=== PATIENT | male | born 1945 | race Caucasian/White ===

== ENCOUNTER 2021-01-15 05:50 | Day surgery (SDC) | payer MEDICARE, OTHER ==
--- NOTE | 2021-01-02 13:41 | NUR ---
DOS: 15- STEPS: PT HAS 21 TOTAL. HE HAS STEPS INTO THE HOUSE AND INTO THE YARD FROM THE DRIVEWAY. HAS SIDERAILS ON BOTH SIDE OF ALL STAIRS. SHOWER: IS A STEP OVER, BUT HAS HAND RAILS AND A SHOWER CHAIR. WALKER: PT HAS FWW TOLITE: HE DOES NOT HAVE A TOLIET RAISER, BUT CAN GET ONE IF NEEDED. WILL DRIVE PT TO PHYSICAL THERAPY AND DR DIAZ
[~2021-01-15] VITALS: Ht 177.8 cm; Wt 98.6 kg
[~2021-01-15 05:50] MED LIST: AVODART0.5 MG PO; CLARITIN10 MG PO; DOXAZOSIN MESYLA4 MG PO; FLOMAX0.4 MG PO; LIPITOR20 MG PO; MOBIC15 MG PO; MULTI VITAMIN1 EACH PO; OMEPRAZOLE20 MG PO; VITAMIN B-121000 MCG PO; VITAMIN D325 MC2 PO
--- NOTE | 2021-01-15 09:25 | NUR ---
01/15/21 0925 Celena Padilla 0914 PT TO PACU ALERT AND AWAKE DENIES PAIN OR NAUSEA
--- NOTE | 2021-01-15 10:46 | NUR ---
LE 1030: PT ARRIVES TO UNIT VIA STRETCHER FROM PACU. REPORT RECEIVED AND CARE ASSUMED BY THIS AUTHOR. VSS. DRESSING C/D/I. STRONG PEDAL PULSES, CAP REFILL <3 SECONDS. PT WITH MINIMAL PAIN AT THIS TIME. LUIS ALBERTO PO INTAKE. CRYO CUFF AND SCDS IN PLACE. COMFORTABLE WITHOUT NEEDS AT THIS TIME. ATTENTIVE AT THE BEDSIDE. CALL LIGHT WITHIN REACH
--- NOTE | 2021-01-15 11:20 | NUR ---
PT ARRIVED TO FLOOR VIA BED. PT IS ALERT AND ORIENTED. BEDSIDE REPORT RECIEVED. PT REPORTING RIGHT KNEE PAIN AT 3/10. SBA TO SIDE OF BED FOR VOID. PT VOIDED 300ML THEN BACK TO BED. ASSESSMENT COMPLETED. CRYOCUFF, TEDHOSE, FEET PUMPS ALL IN PLACE. CALL LIGHT IN REACH. LUNCH ORDERED.
--- NOTE | 2021-01-15 11:26 | NUR ---
PT TRANSFERED TO ROOM 122 FOR EXTENDED STAY VIA STRETCHER. BEDSIDE REPORT GIVEN TO ACCEPTING RN AND CARE ASSUMED
--- NOTE | 2021-01-15 12:37 | NUR ---
VITALS COMPLETED AND STABLE. FOCUSED ASSESSMENT TO R KNEE COMPLETED. NO CHANGES. PT EATING AND TOLERATING LUNCH WITH NO ISSUES. CALL LIGHT IN REACH. DAWIT, SCD'S, TEDHOSE IN PLACE.
--- NOTE | 2021-01-15 14:58 | NUR ---
SATURATIONS DROPPING TO 87% WHEN PT FALLS ASLEEP AND SPD ALARM ALARMING. 2L NC PLACED. PT REPORTING URGE TO VOID BUT UNABILITY TO EMPTY BLADDER. SCAN COMPLETED WITH 1000 ML IN BLADDER. TORRES PLACED WITH LIDOCAINE USED. PT TOLERATED WELL AND 1100 ML WAS DRAINED FROM BLADDER. MEDICATIONS GIVEN AND LAST POST OP VITALS COMPLETED. PT REPORTING PAIN 01/10. SCD'S, TEDHOSE, CRYOCUFF IN PLACE. PT DENIES NEEDS. CALL LIGHT IN REACH.
[2021-01-15] MEDS ORDERED: DUTASTERIDE0.5 MG PO (16:37)
[2021-01-15] MEDS ORDERED: STOOL SOFTENER100 MG PO (17:11)
--- NOTE | 2021-01-15 17:12 | NUR ---
MED REC COMPLETE
--- NOTE | 2021-01-15 17:58 | NUR ---
DINNER TO BEDSIDE. ASSISTED UP TO CHAIR TO EAT. PAIN REPORTED AT 12/10. SCHEDULED PAIN MEDICATION. CRYOCUFF REFRESHED AND IN PLACE. PT SITTING WITH FEET DOWN PER REQUEST FOR DINNER.
--- NOTE | 2021-01-15 18:01 | NUR ---
FOUND PT IN BED WITH PILLS ON CHEST. ASKED PT WHAT THEY WERE AND PT REPORTS THEY ARE STOOL SOFTENERS. PT REPORTS HE ALREADY TOOK SOME. PT EDUCATED ON NOT TAKING MEDICATIONS THAT HAVENT BEEN APPROVED BY DR AND SEEN BY PHARMACY. PT IS AGREEABLE AND STATES HE WILL NOT BE TAKING ANY MORE PILLS. PT DOES NOT HAVE PILL BOTTLE, JUST HAS THEM IN BAG.
--- NOTE | 2021-01-15 18:35 | NUR ---
PT HAD GOOD DAY. PAIN WAS WELL CONTROLLED WITH ALL SCEHDULED MEDICATIONS. NO PRN'S ADMISNTERED. DRESSING CLEAN, DRY AND INTACT. PT PLACED ON 2L NC D/T PT BEING DROWSY AND DESATTING WHILE SLEEPING. TORRES PLACED FOR RETENTION. 1100 MLS OUT. PT UP TO CHAIR FOR DINNER. WORKED WELL WITH PHYSICAL THERAPY. TEDHOSE, CRYOCUFF ON. NO NAUSEA. EATING WELL, DRINKING WELL.
--- NOTE | 2021-01-15 20:02 | NUR ---
REPORT RECEIVED FROM DAYSHIFT RN, PT AWAKE AND ALERT SITTING AT BEDSIDE CHAIR, PT REPORTS NO FURTHER NEEDS AT THIS TIME. WILL CONTINUE PLAN OF CARE.
--- NOTE | 2021-01-15 20:50 | NUR ---
THIS RN IN TO ASSESS PT AND ADMINISTER ORDERED MEDICATIONS. PT LAYING IN BED AWAKE AND ALERT, TORRES IN PLACE AND DRAINING. PT COMPLAINS OF 1/10 PAIN IN HIS R KNEE. DRESSING ASSESSED AND IS C/D/I, SPICA DRESSING IN PLACE, CRYO CUFF ON. STRONG PULSES PRESENT IN LOWER EXTREMITIES. SCHEDULED MEDICATIONS ADMINISTED, ASSESSMENT COMPLETE. PT REPORTS NO FURTHER NEEDS AT THIS TIME, WILL CONTINUE PLAN OF CARE. CALL LIGHT IN REACH, BED IN LOWEST POSITION.
--- NOTE | 2021-01-15 21:00 | NUR ---
PATIENT CALLED DESKIDDING MACHINE OPERATOR SYSTEM TO GO FROM BED TO CHAIR. JARON FAJARDO AND THIS TRACER BULLET SECTION SUPERVISOR ASSITED PATIENT USING FWW. PATIENT EXPRESSED LITTLE PAIN AND DID WELL MOVING/ AMBULATING. CRYO READJUSTED. VIATLS AND I&O COMPLETED WITH ASSISTANCE FORM JARON DOW. BRIAN EMPTIED. JARON DOW AND AARON IN ROOM WHEN THIS TRACER BULLET SECTION SUPERVISOR LEFT ROOM.
--- NOTE | 2021-01-15 22:59 | NUR ---
THIS RN IN TO ADMINISTER SCHEDULED MEDICATIONS. IV ABX INFUSING AND ORDERED PAIN MEDICATIONS ADMINISTERED. PT STILL ONLY REPORTS 1/10 PAIN. PT STILL ON 2L O2 NC, SPO2 AT 96%. PT REPORTS NO SOB AT THIS TIME. PT REPORTS NO FURTHER NEEDS AT THIS TIME. IV ABX COMPLETE, LINE FLUSHED, PT SALINE LOCKED. BED IN LOWEST POSITION, CALL LIGHT IN REACH, WILL CONTINUE PLAN OF CARE.
--- NOTE | 2021-01-16 00:56 | NUR ---
THIS RN IN TO CHECK ON PT. PT LAYING IN BED SLEEPING. RESPIRATIONS NOTED AND ARE EVEN AND UNLABORED. PT IN NO APPARENT DISTRESS AT THIS TIME AND WAS LEFT UNDISTURBED, WILL CONTINUE PLAN OF CARE.
--- NOTE | 2021-01-16 02:41 | NUR ---
THIS RN IN TO ASSESS PT AND ADMINISTER ORDERED MEDICATIONS. PT INITIALLY SLEEPING IN BED AND IN NO APPARENT DISTRESS. PO AND IV PAIN MEDICATION GIVEN (SEE MAR). PT STATED THAT HE ONLY HAD A PAIN OF 2/10 ON HIS R KNEE WHEN HE MOVED IT. PT ASSESSED, VS STABLE, PT ON 2L O2 NC, SPO2 AT 95%. DRESSING ON R KNEE IS C/D/I AND SHOWS NO SIGNS OF BLEEDING, SPICA DRESSING IN PLACE. PT REPORTS NO SOB WHEN ASKED. CRYOCUFF REFILLED WITH ICE AT THIS TIME. PT REPORTS NO FURTHER NEEDS AT THIS TIME, WILL CONTINUE PLAN OF CARE. CALL LIGHT IN REACH, BED IN LOWEST POSITION.
--- NOTE | 2021-01-16 06:26 | NUR ---
IN PATIENT ROOM FOR VIATLS AND I&O. BOTH COMPLETED. 100ML OUT OF TORRES. JARON DOW NOTIFIED OF LOW URINE OUTPUT. CRYO CHECKED FOR ICE. PATIENT REQUESTED APPLE SAUCE. FFRESH WATER AND APPLESAUCE GIVEN. CALL LIGHT IN REACH. PATIENT DENIES ANY FUTHER NEEDS.
--- NOTE | 2021-01-16 06:55 | NUR ---
THIS RN IN TO ADMINISTER ORDERED MEDICATIONS AND DC TORRES. PT LAYING IN BED AWAKE AND ALERT. PT REPORTS 2/10 PAIN IN THE R KNEE WHEN HE MOVES IT. HELENA WRAP, ABD AND DRESSING STILL IN PLACE WITH NO NEW SIGNS OF BLEEDING. CRYO CUFF IN PLACE. PEDAL PULSES STRONG. ON-Q PUMP IN PLACE AT 6ML/HR. IV ABX AND SCHEDULED PAIN MEDICATION ADMINISTERED AND IV ABX COMPLETED, PT SALINE LOCKED. PT TORRES DC'D DURING THIS TIME, DC WNL AND PT TOLERATED REMOVAL WELL. PT PROVIDED WITH WATER PER HIS REQUEST. PT TAKEN OFF OF 2L O2 NC, AND IS NOW ON ROOM AIR, SPO2 RANGING FROM 90-92%. PT REPORTS NO SOB. PT REPORTS NO FURTHER NEEDS AT THIS TIME, CALL LIGHT IN REACH, BED IN LOWEST POSITION, WILL CONTINUE PLAN OF CARE.
--- NOTE | 2021-01-16 07:29 | NUR ---
REPORT RECEIVED. PT AWAKE IN BED, NOW ON RA WITH PSO2 AT 95%. ACTICOAT, ABD, AND HELENA WRAP IN PLACE AND CLEAN AND DRY. ONQ PUMP INFUSING AT 6ML/HR. PAIN REPORTED 10. CALL LIGHT IN REACH.
--- NOTE | 2021-01-16 07:43 | NUR ---
PHIL HESTER TO FLOOR, DISCUSSED RESTARTING HOME BPH MEDICAITONS DOXAZOSIN MESYLATE AND DUTASTERIDE. DOXAZOSIN ORDER PLACED AND CALL MADE TO PHARMACY D/T DUTASTERIDE BEING UNAVAILABLE. PHARMACY TO SUB MEDICATION AND PLACE ORDER.
--- NOTE | 2021-01-16 08:07 | NUR ---
In to speak with pt. He is on the phone, will return later for assessment. Pt staes he wants to go home on dc.
--- NOTE | 2021-01-16 08:12 | NUR ---
IN TO ADMISNTER MEDICAITONS PHIL HESTER AT BEDSIDE. PLAN OF CARE DISCUSSED. ASSESSMENT COMPLETED AND PT ASSISTED TO CHAIR FOR BREAKFAST. SBA WITH FWW. PT ABLE TO GET OOB INDEPENDENTLY. TOELRATED WELL. PAIN STILL 12/10. CRYOCUFF PLACED.
[2021-01-16] MEDS ORDERED: XARELTO10 MG PO (08:26)
[2021-01-16] MEDS ORDERED: TRAMADOL HCL50 MG PO (08:27)
[2021-01-16] MEDS ORDERED: CELECOXIB200 MG PO (08:27)
[2021-01-16] MEDS ORDERED: GABAPENTIN300 MG PO (08:28)
--- NOTE | 2021-01-16 08:40 | NUR ---
Spoke with pt. He lives in [place] and plans on dc to home today. Family will transport. Pt has 7 steps into his home and 22 steps to his upstairs. He will work with PT and complete steps today. Pt. states he hasn't been able to void post catheter removal. He understan ds he cannot leave until he voids. He denies any needs at home. States he uses only 1 floor of his home. Son and son in law will assist him into the home and all stairs have hand rails.
--- NOTE | 2021-01-16 09:20 | NUR ---
PT HASEN'T VOIDED YET. GOT PT UP TO AMBULATE HALLS. THERAPIST TO FINISH WALK THEN PT WILL TRY TO VOID. PT IS DENYING PAIN.
--- NOTE | 2021-01-16 10:02 | NUR ---
PT WITH FIRST DOSE OF XARELTO TODAY. PILL FOUND ON GROUND AFTER PHYSICAL THERAPY WORKED WITH PT. NEW PILL RETRIEVED FROM [employer] AND ADMSINTERED TO PT LATE.
--- NOTE | 2021-01-16 10:16 | NUR ---
PATIENT LAYING IN BED WITH EYES CLOSED. FILLED CYRO WITH FRESH ICE. VITALS AND I&O'S DOCUMENTED. NO VOID, RN NOTIFIED. CALL LIGHT IN REACH. NO FURTHER NEEDS AT THIS TIME.
--- NOTE | 2021-01-16 10:35 | NUR ---
PT UP TO BATHROOM. UNABLE TO VOID. BLADDER SCAN COMPLETED. 125 MLS IN BLADDER. WILL TRY AGAIN IN AN HOUR.
--- NOTE | 2021-01-16 11:30 | NUR ---
BLADDER SCAN FOR 198. PT WANTS TO TRY AND RELAX BODY BEFORE ATTEMPTING TO VOID.
--- NOTE | 2021-01-16 11:43 | NUR ---
PT VOIDED 150ML OF URINE, PRIMARY RN ANNY NOTIFIED.
--- NOTE | 2021-01-16 12:20 | NUR ---
PHIL HESTER CALLED TO UPDATE ON PT VOIDED 150ML.S OKAY TO DISCHARGE. PT EATING LUNCH NOW. FAMILY IS ON THE WAY.
--- NOTE | 2021-01-16 13:20 | NUR ---
DISCHARGE INSTRUCTIONS PROVIDED. IV DC'D AND WNL. VITLAS STABLE. NO QUESTIONS.
--- NOTE | 2021-01-16 16:33 | NUR ---
Face sheet, progress notes, medication list, surgery note PT eval/notes faxed to [facility].
--- NOTE | 2021-01-17 07:00 | OR ---
[facility] [address] [place], [place] [address] Signed DATE OF OPERATION: 01/15/2021 SURGEON: Allyn Padilla MD PREOPERATIVE DIAGNOSIS: Severe degenerative joint disease, right knee. POSTOPERATIVE DIAGNOSIS: Severe degenerative joint disease, right knee. PROCEDURE PERFORMED: Right total knee arthroplasty with Beck. AUTO BODY REPAIR TECHNICIAN: Priya Cobb PA-C. Priya was present and critical for all portions of procedure. ANESTHESIA: Spinal. BLOOD LOSS: 150 mL. IMPLANTS: Leticia Triathlon, size 7 with an 11 mm insert and a 38 mm patella. BRIEF HISTORY: Jamal is a 75-year-old gentleman with severe erosive osteoarthritis of the knee. The risks and benefits of operative treatment were discussed with him and he elected to proceed. DESCRIPTION OF PROCEDURE: Once consent was obtained, he was taken to the operating room after adequate anesthesia. He was placed in the operating room table. All downside pressure points well padded. Hip bump was placed. No tourniquet was placed. The leg was then prepped and draped in a standard sterile fashion and the knee was approached through standard anterior incision, carried through skin and subcutaneous tissue. Mid vastus approach was undertaken and carried through the capsule all the way down to the MCL. The MCL was elevated as a sleeve around the posteromedial corner. All bleeders were cauterized as Electronically Signed By: ALLYN PADILLA MD 01/17/21 0700 PATIENT NAME: JAMAL JOSE OPERATIVE REPORT DATE OF : 41 REPORT #: [id number] PHYSICIAN: ALLYN PADILLA MD PCP: NIMESH WALTON REPORT IS CONFIDENTIAL AND NOT TO BE RELEASED WITHOUT AUTHORIZATION [facility] [address], [place] [address] Signed we went. The infrapatellar fat pad was excised and the anterior horn of the lateral meniscus was transected. ACL medial meniscus was absent. The knee was then flexed and the checkpoints were placed in the medial femoral condyle and proximal tibia. The computer rays were placed in the medial femoral condyle and one handbreadth below the tibial tubercle percutaneously. The leg was then registered with the computer. The fine anatomic points were then taken in the computer and the adjustments were made for ligament balance including slight increase in varus. The patient noted a 15-degree flexion contracture, so I did raise the joint line 1 mm. The robot was then brought in and the straight cuts were made starting with tibia. Care was taken to protect the surrounding soft tissues. The blade was then switched to the BIM blade and the last two cuts were made. All bone was removed as were the osteophytes. The trials were then positioned. The knee went to full extension and 130 degrees of flexion. He was stable throughout. The patella was cut sized and drilled for a 38 patella. His bone was fairly soft, so we elected to go with a hybrid prosthesis. The components were obtained. The bone was pulse lavaged and packed with dry Ray-Dhara. The cement was mixed and reached proper consistency, it was placed on the implants and bone surfaces. The tibia was impacted into position first followed by removal of all the extra cement. The polyethylene was snapped into position and the femur was impacted. The knee was then extended and nicely loaded. The patella was clamped into position, again any overflow was removed. The cement was allowed to harden. Once it hardened sufficiently, any remaining overflow was removed using osteotomes. The knee was pulse lavaged at intervals using 3 L of normal saline. We did soak the knee with 500 mL of dilute iodine and then washed it out with a little bit more saline. The On-Q pain pump was placed in the adductor canal from a percutaneous position and the arthrotomy was closed using #2 Stratafix, subcutaneous tissue with #0 Stratafix, and the skin with a running 3-0 Monocryl and Steri-Strips. Wounds were dressed with Acticoat dressing, ABD, and Elton wrap. He tolerated the procedure well. All sponge, needle, and instrument counts were correct. Allyn Padilla MD BA/MODL /[id number] Copies: Electronically Signed By: ALLYN PADILLA MD 01/17/21 0700 PATIENT NAME: JAMAL JOSE OPERATIVE REPORT DATE OF : 41 REPORT #: [id number] PHYSICIAN: ALLYN PADILLA MD PCP: NIEMSH WALTON REPORT IS CONFIDENTIAL AND NOT TO BE RELEASED WITHOUT AUTHORIZATION [address] [address] Signed ~ Electronically Signed By: ALLYN PADILLA MD 01/17/21 0700 PATIENT NAME: JAMAL JOSE CHU OPERATIVE REPORT DATE OF : 41 REPORT #: [id number] PHYSICIAN: ALLYN PADILLA MD PCP: NIMESH WALTON REPORT IS CONFIDENTIAL AND NOT TO BE RELEASED WITHOUT AUTHORIZATION
== END 2021-01-16 13:15 | disposition home or self-care (01) ==
LOC: MS 05:50 → DS 05:50 → MS 11:25 → DS 01-16 13:15
PROVIDERS: ATTEND Specialist
PROC: 0SRC0J9 Replacement of Right Knee Joint with Synthetic Substitute, Cemented, Open Approach (ICD-10-PCS; principal; 2021-01-15 06:45)
DX: M17.11 Unilateral primary osteoarthritis, right knee (principal); G89.18 Other acute postprocedural pain; Z87.891 Personal history of nicotine dependence
CPT/HCPCS: 01402; 51798; 64447; 64450; 76942; 97110; 97116; 97163; C1713; C1776; J0690; J0735; J1100; J1885; J2001; J2250; J2405; J2704; J2795; J3010; J7121; J8540